=== PATIENT | male | born 2000 | race Caucasian/White ===

== ENCOUNTER 2023-03-05 15:32 | Emergency (ER) | payer SELFPAY ==
[~2023-03-05] VITALS: Ht 185.4 cm; Wt 90.7 kg
--- NOTE | 2023-03-05 15:42 | ED GI ---
General Chief Complaint: Abdominal/GI Problems Stated Complaint: ABD PAIN Source of Information: Patient Exam Limitations: No Limitations History of Present Illness Date Seen by Provider: Mar 05, 2023 Time Seen by Provider: 15:39 Initial Comments Patient Is a 22-year-old male who presents ED for a lump to his left lower quadrant. He states he has had this "lump" for the past 2 years. Increased in size. Denies any redness or swelling. Reports pain to this location with movement. Describes his pain as burning and tingling with movement. Denies of any fever, vomiting, diarrhea, dysuria, hematuria. Denies of any specific injury. He patient has not followed up with a primary care physician. Cancer runs in his family according to patient. Patient is concerned Allergies and Home Medications Patient Home Medication List Home Medication List Reviewed: Yes Review of Systems Review of Systems Constitutional: No chills, No diaphoresis, No fever, No malaise, No weakness EENTM: No Blurred Vision, No Double Vision, No Eye Pain Respiratory: Denies Cough, Denies Orthopnea Cardiovascular: Denies Chest Pain Gastrointestinal: Denies Abdominal Pain, Denies Nausea, Denies Vomiting Genitourinary: Denies Burning, Denies Discharge, Denies Drainage, Denies Frequency Musculoskeletal: No back pain, No joint pain Skin: No change in color; other (nodule) Hematologic/Lymphatic: Denies Anemia Past Kcghpyk-Rujfvs-Aiomro Hx Patient Social History Tobacco Use?: Yes Tobacco type used: Cigarettes Substance use?: Yes Substance type: Marijuana Alcohol Use?: Yes Alcohol Frequency: Once in a while Physical Exam Vital Signs Vital Signs - First Documented 03/05/23 15:32 Temp 36.6 Pulse 74 B/P (MAP) 113/62 (79) Pulse Ox 98 O2 Delivery Room Air Capillary Refill : Height/Weight/BMI Height: '" Weight: lbs. oz. kg; BMI Method: General Appearance: WD/WN, no apparent distress HEENT: PERRL/EOMI, normal ENT inspection, TMs normal, pharynx normal Neck: non-tender, full range of motion, supple, normal inspection Respiratory: chest non-tender, lungs clear, normal breath sounds, no respiratory distress Cardiovascular: regular rate, rhythm, no edema, no gallop Gastrointestinal: normal bowel sounds, soft, no organomegaly; No abnormal bowel sounds, No distended Extremities: normal range of motion, non-tender, normal inspection, no pedal edema Back: normal inspection, no CVA tenderness, no vertebral tenderness Neurologic/Psychiatric: patcher bowling ball II-XII nml as tested, no motor/sensory deficits, alert, normal mood/affect, oriented x 3 Skin: other (Dime sized freely movable nodule left lower quadrant in the subcutaneous tissue. No surrounding redness or swelling. No tenderness to palpate) Progress/Results/Core Measures Results/Orders Vital Signs/I&O 03/05/23 03/05/23 15:32 15:44 Temp 36.6 36.6 Pulse 74 74 B/P (MAP) 113/62 (79) 113/62 Pulse Ox 98 98 O2 Delivery Room Air Room Air Departure Communication (PCP) Reviewed previous ER visits, H&P, lab testing. Patient concern for nodule left lower quadrant. On exam palpable freely movable dime size nodule. Very minimal tenderness. No surrounding redness or swelling. Discussed with patient likely cyst versus lipoma. Patient has noted the nodule for the past 2 years. He reports a burning sensation with movement. Discussed with patient he will need to follow-up with a general surgeon for excision. This is not necessarily ea mergent procedure. Does not appear infected. Return precaution were discussed with patient. If increased pain, redness or swelling he needs to return back to ED. Provided general surgery follow-up Impression Primary Impression: Cyst Disposition: 01 HOME, SELF-CARE Condition: Stable Departure-Patient Inst. Decision time for Depature: 15:41 Referrals: KRISSY AMATO,LOCAL PHYSICIAN (PCP) Primary Care Physician Patient Instructions: Epidermal Cyst (DC) Add. Discharge Instructions: Recommend ibuprofen for pain. Recommend follow-up with general surgery for urgent surgical intervention All discharge instructions reviewed with patient and/or family. Voiced understanding. GREGORY VALENZUELA Mar 05, 2023 15:42
[2023-03-05 15:44] VITALS: BP 113/62
== END 2023-03-05 15:48 | disposition home or self-care (01) ==
LOC: ER 15:34
DX: L72.0 Epidermal cyst (principal); F17.210 Nicotine dependence, cigarettes, uncomplicated
CPT/HCPCS: 99283